=== PATIENT | female | born 1970 | race Caucasian/White ===

== ENCOUNTER 2021-05-11 13:25 | Emergency (ER) | payer OTHER ==
[~2021-05-11] VITALS: Ht 170.2 cm; Wt 60.8 kg
== END 2021-05-11 19:18 | disposition home or self-care (01) ==
LOC: ED 13:25
DX: S16.1XXA Strain of muscle, fascia and tendon at neck level, initial encounter (principal); S00.93XA Contusion of unspecified part of head, initial encounter; R10.9 Unspecified abdominal pain; Y04.8XXA Assault by other bodily force, initial encounter; Z88.0 Allergy status to penicillin; Z88.1 Allergy status to other antibiotic agents; Z88.5 Allergy status to narcotic agent
CPT/HCPCS: 70450; 72125; 74176; 80053; 81001; 83690; 85025; 99284-25

== ENCOUNTER 2021-12-06 18:48 | Emergency (ER) | payer OTHER ==
[~2021-12-06] VITALS: Ht 170.2 cm; Wt 60.8 kg
[2021-12-06] MEDS ORDERED: HYDROCODON-ACE1 EA10 PO (20:16)
[2021-12-06] MEDS ORDERED: crutches XX (20:43)
== END 2021-12-06 20:52 | disposition home or self-care (01) ==
LOC: ED 18:48
DX: S82.144A Nondisplaced bicondylar fracture of right tibia, initial encounter for closed fracture (principal); S89.81XA Other specified injuries of right lower leg, initial encounter; Z88.0 Allergy status to penicillin; Z88.1 Allergy status to other antibiotic agents; Z88.5 Allergy status to narcotic agent; V18.4XXA Pedal cycle driver injured in noncollision transport accident in traffic accident, initial encounter; Y93.55 Activity, bike riding
CPT/HCPCS: 73700; 96372; 99283-25; J1885

== ENCOUNTER 2023-08-30 06:28 | Day surgery (SDC) | payer BC, OTHER ==
[~2023-08-30] VITALS: Ht 170.2 cm; Wt 76.2 kg
[~2023-08-30 06:28] MED LIST: HYDROCODON-ACE1 EA10 PO; NP THYROID60 MG PO; crutches XX
[2023-08-30 06:47] VITALS: BP 117/73
[2023-08-30] MEDS ORDERED: OXYCODONE HCL5 MG PO (06:51)
[2023-08-30] MEDS ORDERED: TYLENOL EXTRA500 MG PO (06:51)
--- NOTE | 2023-08-30 07:28 | NUR ---
EXERCISED MINISTRY OF PRESENCE PT TALKED OF FAMILY AND HEALTH AND THEOLOGY. PT DECLINED BEDSIDE PRAYER. PRAYED SILENTLY FOR SUCCESSFUL PROCEDURE AND COMPLETE RECOVERY OUTSIDE ROOM.
--- NOTE | 2023-08-30 08:46 | NUR ---
08/30/23 0846 [place] 0800- PT ARRIVES TO PACU, LEFT LATERAL POSITION. LR INFUSING TO RH IV. O2 AT 3L PER NC. PT REACTIVE TO STIMULUS AND HAS MUMBLING SPEECH. ABD SOFT, NON DISTENDED. PT ENCOURAGED TO PASS GAS, ICE PACK TO LEFT FACE FROM RECENT DENTAL SURGERY. PT BACK TO SLEEP, ALL MONITORS IN PLACE. WILL CONTINUE TO MONITOR. 0815- PT CONTINUES TO REST AT THIS TIME, PT REACTIVE TO STIMULUS BUT DOESN'T OPEN EYES OR VOCALIZE. LR CONTINUES TO INFUSE, O2 REMAINS IN PLACE. BREATHING EVEN AND NON LABORED. 0830- PT CONITNUES TO REST, PASSING GAS. NO SIGNS OF DISTRESS. REACTIVE BUT DOESN'T WAKE TO ANSWER QUESTIONS. 0837- PT WAKES SELF AND STATES "IS THE ALLIANCE PARTY OVER?" PT REORIENTED TO PLACE AND TIME, FINDINGS GIVEN TO PT AFTER ASKING. ENCOURAGED TO CONTINUE PASSING GAS FOR PAIN CONTROL. DENIES PAIN OR NAUSEA AT THIS TIME. PT STATES "I'M JUST REALLY TIRED". PT FALLS BACK TO SLEEP. 0840- 1ST LITER LR IS COMPLETE, BP 90/60. 2ND LITER LR STARTED AT THIS TIME. PT MOVED TO ROOM AIR AT THIS TIME, SATS HAVE REMAINED 100% ON 3L O2 WHILE SLEEPING. WILL CONTINUE TO MONITOR.
[2023-08-30 09:25] VITALS: BP 102/66
--- NOTE | 2023-08-30 09:29 | NUR ---
0905: PT RETURNS TO UNIT VIA STRETCHER FROM PACU FOR EXTENDED RECOVERY. REMAINS DROWSY BUT IS ABLE TO MAINTAIN CONVERSATION AND ANSWER QUESTIONS APPROPRIATELY. VSS, RESP EVEN AND UNLABORED. DENIES PAIN AND NAUSEA. HOB ELEVATED AND ICE WATER AND CRACKERS PROVIDED. POC DISCUSSED AND PT AGREEABLE. TO USE CALL LIGHT. NO NEEDS VOICED 0925: PT USES CALL LIGHT TO REPORT DESIRE TO DC. IV CONVERTED TO SL. DANGLED AT THE BEDSIDE. CHRISTIANO WELL, DENIES DIZZINESS AND SOB. CONTS TO DENY PAIN AND NAUSEA. TO DRESS WITH MOTHER'S ASSISTANCE.
--- NOTE | 2023-08-30 09:45 | NUR ---
PT DRESSED AND READY TO GO. DISCHARGE EDUCATION PROVIDED, MOTHER AT BEDSIDE. PT STATES VERBAL UNDERSTANDING AND STATES NO FURTHER QUESTIONS OR NEEDS AT THIS TIME. ALL BELONGINGS IN PT POSSESSION. ICE WATER AND ICE PACK PROVIDED AT PT REQUEST. PT OFF OF UNIT VIA WC TO PASSENGER SIDE OF MOTHER'S VEHICLE.
--- NOTE | 2023-08-30 10:29 | OR ---
[facility] [address], [place] [address] Signed DATE OF OPERATION: 08/30/2023 SURGEON: Asa George MD PREOPERATIVE DIAGNOSIS: Screening. POSTOPERATIVE DIAGNOSIS: Minimal internal hemorrhoids. PROCEDURE: Colonoscopy without biopsy. ESTIMATED BLOOD LOSS: None. INDICATIONS: Robert is a 52-year-old female, asked to see me for her initial screening colonoscopy. She has no lower GI complaints. There is no family history of colon cancer or polyps. In the office, I had given her a pamphlet on colonoscopy. We looked at it together. She understands the nature of the test. There is risk including, but not limited to gas bloating, crampy abdominal pain, bleeding, perforation requiring surgery, and missed diagnosis. We also reviewed the need for IV conscious sedation. She had expressed understanding and wished to proceed. PROCEDURE NOTE: Robert had to go see her technical applications specialist and they worked on the tooth up in her maxilla. Apparently, it got infected and she ended up at [facility] because of the pain. She has been off the oxycodone now for several days. Her face is bruised, but it is resolving. She has been on clindamycin. She wanted to go ahead and proceed with her colonoscopy. We had taken her back into the Endo suite and placed in the left lateral decubitus position. She took a total of 200 mcg of fentanyl and 9 mg of Versed. We had to pause three separate times to give more drugs and gently pass the scope. We used [id number] abdominal pressure to get the scope around and into the cecum itself. Overall, she is not hard to scope. She is very close to needing monitored anesthesia care with propofol infusion. Maybe the next time without the recent history of oxycodone, she will do better. But in the end, she was quite comfortable. Her prep was quite excellent. We could easily see the appendiceal orifice and the ileocecal valve. The scope was then slowly withdrawn. We took several pictures throughout for photodocumentation. We found no pathology throughout her entire colon or rectum. Upon Electronically Signed By: ASA GEORGE MD 08/30/23 1029 PATIENT NAME: ROBERT SALEEM OPERATIVE REPORT DATE OF : 74 REPORT #: [id number] PHYSICIAN: ASA GEORGE MD PCP: RESHMA YIN PA-C REPORT IS CONFIDENTIAL AND NOT TO BE RELEASED WITHOUT AUTHORIZATION [facility] [address] [place] [id number] Signed retroflexion of the scope, she has very minimal internal hemorrhoid tissue. After this, the gas was suctioned out and the colonoscope removed. Robert tolerated the procedure overall well. RECOMMENDATIONS: Robert can return in 10 years for repeat screening colonoscopy. She may or may not benefit from monitored anesthesia care with propofol infusion in the future. MD BITA Lawton/BETHL /[id number] cc: MD Julienne Lawton MD Copies: ASA GEORGE MD ~ Electronically Signed By: ASA GEORGE MD 08/30/23 1029 PATIENT NAME: ROBERT SALEEM OPERATIVE REPORT DATE OF : 74 REPORT #: [id number] PHYSICIAN: ASA GEORGE MD PCP: RESHMA YIN PA-C REPORT IS CONFIDENTIAL AND NOT TO BE RELEASED WITHOUT AUTHORIZATION
== END 2023-08-30 09:45 | disposition home or self-care (01) ==
LOC: DS 06:28 → OPS 06:28 → DS 07:30 → OPS 07:30
PROVIDERS: ATTEND Colon & Rectal Surgery
PROC: 0DJD8ZZ Inspection of Lower Intestinal Tract, Via Natural or Artificial Opening Endoscopic (ICD-10-PCS; principal; 2023-08-30 07:30)
DX: Z12.11 Encounter for screening for malignant neoplasm of colon (principal); K64.8 Other hemorrhoids; G89.29 Other chronic pain; F43.10 Post-traumatic stress disorder, unspecified; L40.9 Psoriasis, unspecified; M50.30 Other cervical disc degeneration, unspecified cervical region; F60.3 Borderline personality disorder; Z90.5 Acquired absence of kidney
CPT/HCPCS: 99153; G0500; J2250; J3010; J7121

== ENCOUNTER 2025-10-12 10:46 | Emergency (ER) | payer OTHER ==
[~2025-10-12] VITALS: Ht 170.2 cm; Wt 78.0 kg
--- OUTSIDE RECORDS SUMMARY | ~2025-10-12 | XMS | Continuity of Care Document ---
Demographics + + + | Address | [address] | | | [place] [address] | + + + | Preferred Language | Unknown | + + + | Marital Status | Legally | + + + | Druze Affiliation | Unknown | + + + | Race | White | + + + | Ethnic Group | Not or | + + + Author + + + | Author | [facility] | + + + | Organization | [facility] | + + + | Address | [address] | | | [place] [address] | + + + | Phone | | + + + Care Team Providers + + + + | Care Tree And Shrub Technician Name | Role | Phone | + + + + Unavailable | Unavailable | + + + + Allergies No information. Encounters No information. Functional Status No information. Immunizations No information. Medications + + + + | date | description | facility | + + + + | (no date) | OXYCODONE HCL | [facility] | | | | [facility] | + + + + | (no date) | ACETAMINOPHEN | [facility] | | | | [facility] | + + + + Problems No information. Procedures No information. Results/Labs No information. Social History +--------+ + + | date | description | facility | +--------+ + + Vital Signs No information."
[~2025-10-12 10:46] MED LIST changes: +OXYCODONE HCL5 MG PO; +TYLENOL EXTRA500 MG PO
[2025-10-12 13:17] VITALS: BP 112/74
== END 2025-10-12 13:19 | disposition home or self-care (01) ==
LOC: ED 10:46
DX: S06.0X0A Concussion without loss of consciousness, initial encounter (principal); S60.031A Contusion of right middle finger without damage to nail, initial encounter; W01.0XXA Fall on same level from slipping, tripping and stumbling without subsequent striking against object, initial encounter; Z88.0 Allergy status to penicillin; Z88.5 Allergy status to narcotic agent; Z88.1 Allergy status to other antibiotic agents
CPT/HCPCS: 70450; 99283-25